=== PATIENT | female | born 1995 | race Caucasian/White ===

== ENCOUNTER 2018-12-26 23:44 | Emergency (ER) | payer BC ==
--- NOTE | 2018-12-27 00:49 | ED ---
Lower Extremity - HPI Summary HPI Summary: 23-year-old female presents with left foot injury today. She got caught underneath her counter. She has swelling noted to top of foot. Denies any ankle pain. Is able to ambulate his pain. No numbness or tingling. No previous fracture to the area. Has no medical conditions. - History of Current Complaint Chief Complaint: EDExtremityLower Stated Complaint: I THINK I BROKE MY FOOT PER PT Time Seen by Provider: 12/27/18 00:32 Pain Intensity: 6 - Allergies/Home Medications Allergies/Adverse Reactions: Allergies Allergy/AdvReac Type Severity Reaction Status Date / Time No Known Allergies Allergy Verified 12/27/18 00:54 Home Medications: Home Medications Sertraline* [Zoloft*] 50 mg PO DAILY 12/27/18 [History Confirmed 12/27/18] PMH/Surg Hx/FS Hx/Imm Hx Endocrine/Hematology History: Denies: Hx Anticoagulant Therapy Respiratory History: Denies: Hx Asthma Infectious Disease History: No Infectious Disease History: Denies: Traveled Outside the [place] in Last 30 Days - Family History Known Family History: Positive: Non-Contributory - Social History Alcohol Use: Occasionally Substance Use Type: Reports: None Review of Systems Negative: Fever Negative: Chest Pain Positive: Myalgia - right foot All Other Systems Reviewed And Are Negative: Yes Physical Exam Triage Information Reviewed: Yes Vital Signs On Initial Exam: Initial Vitals Temp Pulse Resp BP Pulse Ox 97.3 F 84 16 120/42 100 12/26/18 23:45 12/26/18 23:45 12/26/18 23:45 12/26/18 23:45 12/26/18 23:45 Vital Signs Reviewed: Yes Appearance: Positive: Well-Appearing Skin: Positive: Warm, Dry, Other - abrasion to top of left foot Head/Face: Positive: Normal Head/Face Inspection Eyes: Positive: Normal, Conjunctiva Clear ENT: Positive: Pharynx normal Respiratory/Lung Sounds: Positive: Clear to Auscultation, Breath Sounds Present Cardiovascular: Positive: Normal, RRR Musculoskeletal: Positive: Strength/ROM Intact - toes, Edema Left - top of right foot, Other - nontender ankle, tenderness top of right foot, sensation grossly intact. capillary refill<2secs Neurological: Positive: Normal Psychiatric: Positive: Normal Diagnostics - Vital Signs Vital Signs Temp Pulse Resp BP Pulse Ox 12/26/18 23:45 97.3 F 84 16 120/42 100 - Laboratory Lab Statement: Any lab studies that have been ordered have been reviewed, and results considered in the medical decision making process. - Radiology foot Radiology Interpretation Completed By: ED Physician Summary of Radiographic Findings: no fracture Lower Extremity Course/Dx - Course Course Of Treatment: 23-year-old female presents with left foot injury today. She got caught underneath her counter. She has swelling noted to top of foot. Denies any ankle pain. Is able to ambulate his pain. No numbness or tingling. No previous fracture to the area. Has no medical conditions. On exam tenderness over the dorsum of the left toe. able to wiggle toes. Neurovascular intact. X-ray preliminary no fracture. Told to place ice on it and elevate. Patient understands agrees with plan. - Diagnoses Differential Diagnosis/HQI/PQRI: Positive: Contusion, Fracture (Closed), Sprain Provider Diagnoses: Left foot pain Discharge ED - Sign-Out/Discharge Documenting (check all that apply): Patient Departure Patient Received Moderate/Deep Sedation with Procedure: No - Discharge Plan Condition: Good Disposition: HOME Patient Education Materials: Foot Contusion (ED) Ref[place]: [facility] [place]] Erick Ely MD [Medical Doctor] - Additional Instructions: Wear hard sole shoes Ice, elevate Take Tylenol or ibuprofen for pain every 6 hours as needed Follow up with ortho if no improvement Return to ED if develop or any new or worsening symptoms - Billing Disposition and Condition Condition: GOOD Disposition: Home
[2018-12-27] MEDS ORDERED: Ibuprofen TAB* 600 MG PO ONE (01:00)
[2018-12-27 01:32] VITALS: BP 120/58
== END 2018-12-27 01:14 | disposition home or self-care (01) ==
LOC: ED 23:44
DX: M79.672 Pain in left foot (principal); Z79.899 Other long term (current) drug therapy
CPT/HCPCS: 99282; A9270-GY

== ENCOUNTER 2023-06-22 03:32 | Inpatient (IN) ==
[2023-06-22] MEDS ORDERED: Buffered Lidocaine 1% SYRIN 1 ml INTRADERM ONE (06:59)
[2023-06-22 07:32] LABS: ABS Basophils 0.1 10^3/uL (0.0-0.1); ABS Lymphocytes 1.9 10^3/uL (1.0-4.8); ABS Monocytes 0.6 10^3/uL (0.0-0.9); ABS Neutrophils 9.6 10^3/uL (1.5-7.6); ABS Nucleated RBC 0.02 10^3/ul; Eosinophil % 0.2 %; Hematocrit 37.2 % (35-45); Hemoglobin 12.4 g/dL (11.5-14.3); Lymphocyte % 15.7 %; Mean Corpuscular Hemoglobin 26.6 pg (27-33); Mean Corpuscular Hgb Conc 33.2 g/dL (31-36); Mean Platelet Volume 10.2 fL (7.5-11.2); Nucleated Red Blood Cells % 0.2 %/100WBC (0.0-0.8); Platelet Count 156 10^3/uL (150-450); Red Blood Count 4.65 10^6/uL (3.63-4.92); Red Cell Distribution Width 14.8 % (12-17); White Blood Count 12.3 10^3/uL (3.8-11.8)
[2023-06-22] MEDS: Prochlorperazine 5 mg/ml 2 ml VIAL (10 mg) IV ONE (07:33)
[2023-06-22 07:37] LABS: Urine Appearance Clear; Urine Bilirubin Negative (Negative); Urine Blood Negative (Negative); Urine Color Light-Yellow; Urine Glucose Negative (Negative); Urine Ketones Negative (Negative); Urine Nitrite Negative (Negative); Urine Protein Trace (Negative); Urine Specific Gravity 1.009 (1.002-1.030); Urine Urobilinogen Negative (Negative); Urine pH 6.5 (5.0-8.0)
[2023-06-22 08:03] LABS: Urine Benzodiazepine Screen None Detected (None Detect); Urine Cannabinoids Screen None Detected (None Detect); Urine Opiates Screen None Detected (None Detect)
[2023-06-22] MEDS ORDERED: Lidocaine 1% VIAL 10 MG/ML 30 ML VIAL INJ PRN (17:12)
[2023-06-22] MEDS: Lactated Ringers 1000 ml BAG 1,000 ML IV ONE (17:15)
[2023-06-22] MEDS ORDERED: Lidocaine 1.5% EPI 1:200,000 30 ML SDV ONE (17:52)
[2023-06-22] MEDS ORDERED: OBEPIDURAL (200 ML) 200 ML EPIDURAL ONE (17:52)
[2023-06-22 18:29] LABS: Albumin 3.9 g/dL (3.2-5.2); Albumin/Globulin Ratio 1.4 (1-3); Calcium 9.4 mg/dL (8.6-10.3); Creatinine, Serum 0.75 mg/dL (0.51-0.95); Globulin 2.7 g/dL (2-4); Potassium 3.8 mmol/L (3.5-5.0); Total Bilirubin 0.4 mg/dL (0.2-1.0); Total Protein 6.6 g/dL (6.4-8.9); eGFR CKD-EPI 111.1 (>60)
[2023-06-22 18:32] LABS: Urine Creatinine Concentration 48.12 mg/dL (20.00-320.00); Urine TP Creat Ratio 0.83 mg/mg
[2023-06-22] MEDS: OBEPIDURAL (200 ML) 200 ML EPIDURAL SCH (18:40)
[2023-06-22] MEDS ORDERED: Sodium Citrate/Citric Acid LIQ 15 ML UDC PO PRN (18:48)
[2023-06-22] MEDS ORDERED: Phenylephrine 40 mcg/mL 10mL (400mcg) SYRINGE IV PUSH PRN ×2 (18:48)
[2023-06-22] MEDS ORDERED: Lactated Ringers 1000 ml BAG 1,000 ML IV SCH (19:00)
[2023-06-22] MEDS: Lactated Ringers 1000 ml BAG 1,000 ML IV SCH (19:04)
[2023-06-22 20:43] LABS: Urine Appearance Clear; Urine Bilirubin Negative (Negative); Urine Blood Negative (Negative); Urine Color Light-Yellow; Urine Glucose Negative (Negative); Urine Ketones Negative (Negative); Urine Nitrite Negative (Negative); Urine Protein 1+ (>=30 mg/dL) (Negative); Urine Urobilinogen Negative (Negative)
[2023-06-22 20:53] LABS: Urine Bacteria Absent /HPF (Absent); Urine Red Blood Cell Trace(0-2/hpf) /HPF (0-Trace); Urine White Blood Cell Trace(0-5/hpf) /HPF (0-Trace)
[2023-06-22] MEDS ORDERED: Lidocaine 2% PF 10 ML AMP (OR) ONE (21:18)
[2023-06-23 01:02] LABS: ABS Lymphocytes 1.8 10^3/uL (1.0-4.8); ABS Neutrophils 11.9 10^3/uL (1.5-7.6); Eosinophil % 0.1 %; Hematocrit 35.7 % (35-45); Hemoglobin 11.8 g/dL (11.5-14.3); Lymphocyte % 12.2 %; Mean Corpuscular Hemoglobin 26.7 pg (27-33); Mean Corpuscular Hgb Conc 33.1 g/dL (31-36); Mean Corpuscular Volume 80.7 fL (80-97); Platelet Count 157 10^3/uL (150-450); Red Blood Count 4.42 10^6/uL (3.63-4.92); Red Cell Distribution Width 14.6 % (12-17); White Blood Count 14.7 10^3/uL (3.8-11.8)
[2023-06-23] MEDS ORDERED: Lidocaine 1.5% EPI 1:200,000 30 ML SDV ONE (01:07)
[2023-06-23] MEDS: Lactated Ringers 1000 ml BAG 1,000 ML IV ONE (01:35)
[2023-06-23] MEDS: Oxytocin in LR 20,000 MILLI.UNIT/1,000 ML BAG IV ONE (08:19)
[2023-06-23] MEDS ORDERED: Glycerin ADULT 2.4 gm SUPP PR PRN (08:46)
[2023-06-23] MEDS ORDERED: Oxytocin in LR 20,000 MILLI.UNIT/1,000 ML BAG IV SCH (08:50)
[2023-06-23] MEDS: Witch Hazel PAD JAR TOPICAL PRN (09:26)
[2023-06-23] MEDS: Dibucaine 1% OINT 28.35 GM TUBE PR PRN (09:26)
[2023-06-24 06:51] LABS: ABS Eosinophils 0.2 10^3/uL (0.0-0.5); ABS Lymphocytes 3.2 10^3/uL (1.0-4.8); ABS Monocytes 0.8 10^3/uL (0.0-0.9); ABS Neutrophils 8.8 10^3/uL (1.5-7.6); Eosinophil % 1.3 %; Hematocrit 29.4 % (35-45); Hemoglobin 9.6 g/dL (11.5-14.3); Lymphocyte % 24.6 %; Mean Corpuscular Hemoglobin 26.9 pg (27-33); Mean Corpuscular Hgb Conc 32.8 g/dL (31-36); Mean Corpuscular Volume 82.2 fL (80-97); Mean Platelet Volume 9.6 fL (7.5-11.2); Platelet Count 146 10^3/uL (150-450); Red Blood Count 3.58 10^6/uL (3.63-4.92); Red Cell Distribution Width 15.3 % (12-17)
[2023-06-24 08:46] VITALS: BP 135/81
== END 2023-06-24 13:18 | disposition home or self-care (01) | DRG 560 ==
LOC: MCHOBOUT 03:32 → MCHOB 07:24
PROVIDERS: ADMIT Midwife; ATTEND Midwife